=== PATIENT | male | born 1940 | race Caucasian/White ===

== ENCOUNTER → 2016-12-22 | Outpatient (CLI) | payer OTHER ==
[~2016-12-22] MED LIST: ADVAIR 250/501 EA INH; ALBUTEROL2.5 MG/0.5 INH; ALPRAZOLAM0.5 M3 PO; AUGMENTIN 875 M1 TAB PO; BAYER ASPIRIN C81 MG PO; CIPRO500 MG PO; CIPRODEX 0.3%-7.5 ML OT; DAYPRO600 M1 PO; DELTASONE10 MG PO; DONEPEZIL HCL10 MG PO; DONEPEZIL HYDRO10 MG PO; DOXYCYCLINE100 MG PO; Duoneb 3ML 3 MG/3 ML INH; KLOR-CON 1010 MEQ PO; LASIX40 MG PO; LISINOPRIL20 MG PO; MULTIPLE VITAMI1 TAB PO; NORCO 5-325 TA1 EACH PO; NORFLEX100 MG PO; PREDNISONE20 MG PO; PREDNISONE5 MG PO; RITE AID BRAND PO; ROBAXIN750 MG PO; SINGULAIR10 MG PO; SPIRIVA18 MCG PO; THEO-24 200MG200 MG PO; THEOPHYLLINE E100 M1 PO; THEOPHYLLINE E200 MG PO; THEOPHYLLINE200 M3 PO; VICODIN 5/500 505 MG PO; VICODIN 500 MG-1 TAB PO; VITAMIN D31000 IU PO; VITAMIN E WATE400 I2 PO; Ventolin 02.5 MG/3 M INH; Zestril,Prinivi40 MG PO
[2016-12-22 09:58] LABS: IRON 214 ug/dL (65-175); IRON SATURATION 92 %; UIBC 18 ug/dL (110-410)
== END | disposition home or self-care (01) ==
LOC: LAB 08:48
PROVIDERS: Internal Medicine Hematology & Oncology
DX: E11.9 Type 2 diabetes mellitus without complications (principal); D75.1 Secondary polycythemia

== ENCOUNTER 2016-12-31 18:05 | Inpatient (IN) | payer OTHER ==
[~2016-12-31] VITALS: Ht 170.1 cm; Wt 75.5 kg
--- NOTE | ~2016-12-31 | PR ---
[place], [place] PROGRESS NOTE NAME: KEITH SANTOS [facility] #: [id number] UNIT #: [id number] ROOM: 405 DOCTOR: ANNEMARIE SMALLS MD BIRTHDATE: [birth year] DOS: 01/04/2017 SUBJECTIVE: The patient is doing fine without any complaints this morning. OBJECTIVE: VITAL SIGNS: Graphic trend shows a pressure of 109/67, pulse of 57, respirations 18, temperature 97.3. LUNGS: Diminished breath sounds. HEART: Regular. ABDOMEN: Obese, soft, nontender. EXTREMITIES: Without any edema. ASSESSMENT AND PLAN: 1. Chest pain, precordial ruled out for myocardial infarction, negative stress test. Plan is to discharge him to home. 2. 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 ANNEMARIE SMALLS MD CM:PNTRANS 0834 ANNEMARIE SMALLS MD 01/04/17 2210 interface
--- NOTE | ~2016-12-31 | PR ---
[place], [place] PROGRESS NOTE NAME: KEITH SANTOS [facility] #: [id number] UNIT #: [id number] ROOM: 405 DOCTOR: ANNEMARIE SMALLS MD BIRTHDATE: [birth year] DOS: SUBJECTIVE: The patient states that he feels good and is not having any complaints. Consulted [place] on the patient. Dr. Betancourt did add the medications. OBJECTIVE: GENERAL: Today, he is awake, and alert and oriented, in no major distress. VITAL SIGNS: Blood pressure is 120/62; pulse is 66, respirations 20, temperature 97.7. LUNGS: Diminished breath sounds. HEART: Regular. ABDOMEN: Obese, soft. EXTREMITIES: Without any edema. ASSESSMENT AND PLAN: 1. Precordial chest pain, ruled out for myocardial infarction, scheduled for a stress test. He is on nitrates and a small dose of beta blockers. 2. Large aneurysm, thoracic, already followed up with Vascular Surgery every 6 months. 3. End-stage chronic obstructive pulmonary disease with chronic respiratory failure, on oxygen supplementation. The plan is to discharge him tomorrow after the stress test is done. ANNEMARIE SMALLS MD CM:PNTRANS 1002 06 ANNEMARIE SMALLS MD 01/02/17 180 interface
--- NOTE | ~2016-12-31 | ST ---
[place], [place] EXERCISE STRESS TEST REPORT NAME: KEITH SANTOS [facility] #: [id number] UNIT #: [id number] ROOM: 405 DOCTOR: ANNEMARIE SMALLS MD BIRTHDATE: [birth year] DOS: 01/03/2017 REASON FOR TESTING: Evaluation of precordial chest pain. DESCRIPTION: After explaining the procedure and obtaining consent, the patient was subjected to Lexiscan infusion 0.4 mg. His resting heart rate was 60 with a blood pressure 118/80. EKG showed right bundle branch block, nonspecific STs. After explaining the procedure and obtaining consent, 0.4 mg of Lexiscan infusion was given. No arrhythmias were noted during the stress test. The patient did not have any complaints. After the Lexiscan infusion was over, he was injected with Cardiolite and stress images were taken. ASSESSMENT AND PLAN: Lexiscan stress test without any ST-T wave changes or arrhythmias. Cardiolite images are pending. ANNEMARIE SMALLS MD CM:STRESS:EXERCISE STRESS TEST REPORT [id number] ANNEMARIE SMALLS MD
--- NOTE | ~2016-12-31 | WRIGHTHP ---
[place], [place] PATIENT HISTORY AND PHYSICAL EXAM NAME: KEITH SANTOS [facility] #: [id number] UNIT #: [id number] ROOM: 405 DOCTOR: ANNEMARIE SMALLS MD BIRTHDATE: [birth year] DOS: 01/01/2017 HISTORY OF PRESENT ILLNESS: The patient is 76 years old. The patient is very well known to us, comes in with complaints of chest pain. The patient has cognitive decline. He is not able to help us with a whole lot of history. States he was sitting at his dining room table, eating his dinner when he developed some chest pain. He did have some shortness of breath also and so he decided to come in to the Emergency Room. In the ER, he was evaluated, had a CT of the chest shows aneurysms, which are old and stable, but was admitted because of slight elevation in the MB. The patient denies having any chest pains, right now does not have any shortness of breath, any fever or chills. PAST MEDICAL HISTORY: Significant for 1. COPD, centrilobar emphysema. 2. Alzheimer, late onset. 3. Benign hypertension with LVH. 4. Chronic respiratory failure, oxygen dependent. 5. History of thoracic aortic aneurysms followed by Dr. Beck in [place]. MEDICATIONS: That he is on are Xanax 0.5 mg daily p.r.n., DuoNebs q.i.d., aspirin 81, vitamin D 1000 units, donepezil 10, Lasix 40, lisinopril 20, Singulair 10, multivitamin 1 tablet daily. SOCIAL HISTORY: Nonsmoker, does not use any alcohol, lives at home with his . PHYSICAL EXAMINATION: GENERAL: The patient is awake and alert, fairly oriented to person and place. VITAL SIGNS: Graphic trend shows a pressure of 132/70, pulse of 76, respirations 14, afebrile. HEAD AND NECK: Examination within normal limits. LUNGS: Diminished breath sounds. HEART: Regular. ABDOMEN: Soft, nontender. EXTREMITIES: Without any edema. ASSESSMENT AND PLAN: 1. The patient with precordial chest pain, rule out myocardial infarction protocol with serial troponins were done, which have come back negative. The patient has ruled out. Can discontinue the Lovenox and nitrates. We will schedule him for an echocardiogram and a stress test. 2. Centrilobar emphysema. The patient is with chronic respiratory failure. The patient does not have any evidence of exacerbations. [place], [place] PATIENT HISTORY AND PHYSICAL EXAM NAME: KEITH SANTOS UNIT #: [id number] ROOM: 405 DOCTOR: ANNEMARIE SMALLS MD BIRTHDATE: [birth year] ANNEMARIE SMALLS MD CM:HISPHYS:PATIENT HISTORY AND PHYSICAL EXAMINATION 5 4 ANNEMARIE SMALLS MD 01/01/17834 interface
--- NOTE | ~2016-12-31 | DS ---
[place], [place] DISCHARGE SUMMARY NAME: KEITH SANTOS [facility] #: [id number] UNIT #: [id number] ROOM: 405 DOCTOR: ANNEMARIE SMALLS MD BIRTHDATE: [birth year] DOS: 01/04/2017 HOSPITAL COURSE: The patient is 76 years old, comes in with complaints of chest pain, precordial in nature without any radiation. Please see H and P for details. There is a large aneurysm, which did not show any decompensation. After admission, a rule out myocardial infarction protocol was done, which was negative. Cardiology consultation was obtained and some medications were added. The patient did become hypotensive and bradycardic. So meds had to be discontinued. A stress test was performed and the patient did not show any pathology. So the plan will therefore be discharged her to home to be followed up as an outpatient. DISCHARGE MEDICATIONS: The prescriptions are the same as in admission, the only new prescription given was metoprolol 25 mg daily. ANNEMARIE SMALLS MD CM:DISCHARG 0836 ANNEMARIE SMALLS MD 01/04/17 0854 interface
--- NOTE | ~2016-12-31 | PR ---
[place], [place] PROGRESS NOTE NAME: KEITH SANTOS [facility] #: [id number] UNIT #: [id number] ROOM: 405 DOCTOR: ANNEMARIE SMALLS MD BIRTHDATE: [birth year] DOS: 01/03/2017 SUBJECTIVE: The patient is doing fine without any complaints. OBJECTIVE: VITAL SIGNS: Graphic trend shows a pressure of 110/69, pulse of 54, respirations 20, temperature 97.5. LUNGS: Diminished breath sounds. HEART: Regular. ABDOMEN: Obese, soft, nontender. EXTREMITIES: Without any edema. ASSESSMENT AND PLAN: 1. Precordial chest pain, ruled out. The patient is scheduled for a stress today. 2. Chronic obstructive pulmonary disease, centrilobular emphysema with chronic respiratory failure, oxygen dependent, breathing treatments are being given, one dose of steroids to be given today because of some increased shortness of breath. 3. Benign hypertension, controlled, but the patient is bradycardic from the metoprolol also makes the shortness of breath get worse and the patient with end-stage chronic obstructive pulmonary disease. We will start decreasing the dose of the metoprolol. ANNEMARIE SMALLS MD CM:PNTRANS 0848 ANNEMARIE SMALLS MD 01/04/17 0055 interface
--- NOTE | ~2016-12-31 | PR ---
[place], [place] PROGRESS NOTE NAME: KEITH SANTOS [facility] #: [id number] UNIT #: [id number] ROOM: 405 DOCTOR: DAVID LOWE MD BIRTHDATE: [birth year] DOS: 01/04/2017 SUBJECTIVE: A 76-year-old with thoracic and abdominal aortic aneurysm, but it is now only 4.2 cm, hemodynamically appears to be stable. OBJECTIVE: VITAL SIGNS: Blood pressure today is 109/67, heart rate is 57. HEENT: Unremarkable. NECK: Supple, no JVD. LUNGS: Diminished breath sounds. HEART: Sounds are regular. ABDOMEN: Soft. NEUROLOGIC: Stable. LABORATORY DATA: H and H is normal. Creatinine is 0.81. The patient underwent a stress test. No evidence of reversible ischemia. Continue the beta blockers as ordered and a baby aspirin also. ASSESSMENT AND PLAN: Continue the present care. The patient is already on isosorbide, Lopressor, and lisinopril. Monitor the blood pressure closely. We will consider to do annual CTA of the aorta. Monitor the lipid profile closely and we will follow up. DAVID LOWE MD CM:PNTRANS [id number] DAVID LOWE MD 01/04/17 1138 interface
--- NOTE | ~2016-12-31 | CON ---
[place], [place] REPORT OF CONSULTATION [facility] [id number] UNIT #: [id number] ROOM: 405 DOCTOR: CATRACHO WEST MD BIRTHDATE: [birth year] DOS: 01/03/2017 HISTORY OF PRESENT ILLNESS: This is a 76-year-old -Wel[place] man with impaired memory/significant dementia, essential hypertension, COPD and is oxygen dependent. He has significant COPD and also has ascending aortic and infrarenal aortic aneurysm diagnosed many years ago. The patient is unable to give me much history, although he is very alert. He remembered [place]" and so his memory is not all that impaired. He was eating at the dining table and had shortness of breath because he had some shortness of breath as well and the brought him to the Emergency Department he was admitted for further workup. He quit smoking long time ago. He worked in the [employer] and lives at home. HOME MEDICATIONS: Include DuoNeb, aspirin 81 daily, lisinopril 20 daily, Lasix 40 daily, Singulair 10, multivitamins, Xanax 0.5 mg p.r.n., and donepezil 10 mg daily. PHYSICAL EXAMINATION: GENERAL: This is a patient who is alert. He is very comfortable. There is no anemia or thyromegaly. VITAL SIGNS: Pulse is regular at this 54 beats per minute, blood pressure 110/69. NECK: Normal JVP, no bruit. HEART: There is no cardiomegaly. No murmurs are present. EXTREMITIES: There is no edema in the lower extremities. RESPIRATORY: He is not tachypneic, but has oxygen on. Percussion note is normal. Auscultation reveals a moderately diminished breath sounds in the lower zones with some adventitious sounds. Expiratory phase is not prolonged, and there are no expiratory wheezes. DIAGNOSTIC STUDIES: An ECG on admission showed normal sinus rhythm at 77 beats per minute, incomplete right bundle branch block and left anterior hemiblock. Troponin I levels have been normal. LABORATORY DATA: CT scan of the chest and abdomen demonstrated ascending aorta of 42 mm in size and infrarenal aorta at 42 mm as well indicating mild aneurysms. He had an echocardiogram in August of last year, which was read as showing an EF of 60%. IMPRESSION: This patient with significant dementia and has an abnormal ECG, i.e., right bundle branch block and left anterior hemiblock. He has ruled out for acute myocardial infarction. He had already done a Lexiscan Cardiolite study this morning. Dr. Betancourt will take a look at it. I doubt if significant abnormality will be identified and further recommendations will be provided by Dr. Betancourt after reviewing nuclear images. [place], [place] REPORT OF CONSULTATION NAME: KEITH SANTOS UNIT #: [id number] ROOM: 405 DOCTOR: CATRACHO WEST MD BIRTHDATE: [birth year] Thank you on behalf of Dr. Betancourt for this consult. CATRACHO WEST MD CM:CONSTR:REPORT OF CONSULTATION 1221 01/04/17 0329 interface
[2016-12-31 18:21] VITALS: BP 140/90
[2016-12-31 18:47] VITALS: BP 136/82
[2016-12-31 19:03] LABS: ALBUMIN 3.2 gm/dl (3.1-4.5); ALKALINE PHOSPHATASE 57 U/L (45-117); BILIRUBIN, TOTAL 0.5 mg/dl (0.2-1.0); BUN 26 mg/dl (7-24); CARBON DIOXIDE 34 mmol/L (21-32); CHLORIDE 102 mmol/L (98-107); CPK 110 U/L (39-308); EST GLOM FILT AFRICAN AMERICAN > 60 ml/min; GLUCOSE 96 mg/dL (65-99); MAGNESIUM 2.1 mg/dL (1.5-2.1); POTASSIUM 4.4 mmol/L (3.5-5.1); SGOT/AST 28 IU/L (3-35); SGPT/ALT 24 U/L (12-78); SODIUM 141 mmol/L (136-145); TOTAL PROTEIN 6.3 gm/dL (6.4-8.2)
[2016-12-31 19:04] LABS: BASO % 0.5 % (0.0-1.0); EOS # 0.1 10*3/uL (0.0-0.4); EOS % 1.4 % (1.0-4.0); HEMATOCRIT 48.8 % (42.0-52.0); HEMOGLOBIN 16.9 g/dl (14.0-18.0); LYMPH # 1.4 10*3/uL (1.3-4.4); LYMPH % 18.2 % (27.0-41.0); MEAN CELL VOLUME 97.4 fl (80.0-94.0); MEAN CORPUSCULAR HGB 33.7 pg (27.0-31.0); MEAN CORPUSCULAR HGB CONC 34.6 g/dl (33.0-37.0); MEAN PLATELET VOLUME 9.7 fl (9.6-12.3); MONO # 0.7 10*3/uL (0.1-1.0); MONO % 8.8 % (3.0-9.0); NEUT # 5.2 10*3/uL (2.3-7.9); NEUT % 70.6 % (47.0-73.0); PLATELET COUNT AUTOMATED 161 10*3/uL (130-400); RED BLOOD COUNT 5.01 10*6/uL (4.50-5.90); RED CELL DISTRI WIDTH 13.6 % (0-14.5); WHITE BLOOD COUNT 7.4 10*3/uL (4.8-10.8)
[2016-12-31 19:15] LABS: C-REACTIVE PROTEIN < 0.29 MG/DL (0-0.3)
[2016-12-31 19:17] LABS: PROTHROMBIN TIME 10.3 SECONDS (9.0-12.4)
[2016-12-31 19:18] VITALS: BP 122/78
[2016-12-31 20:44] VITALS: BP 153/97
[2016-12-31 21:02] VITALS: BP 142/80
[2016-12-31 22:30] VITALS: BP 165/92
[2017-01-01] VITALS: BP 159/87
[2017-01-01 03:56] VITALS: BP 142/74
[2017-01-01 08:00] VITALS: BP 141/89
[2017-01-01 12:00] VITALS: BP 111/78
[2017-01-01 16:00] VITALS: BP 103/71
[2017-01-01 20:00] VITALS: BP 115/68
[2017-01-02] VITALS: BP 110/69
[2017-01-02 08:00] VITALS: BP 120/62
[2017-01-02 12:00] VITALS: BP 100/57
[2017-01-02 16:00] VITALS: BP 84/49
[2017-01-02 17:00] VITALS: BP 118/66
[2017-01-02 20:00] VITALS: BP 124/76
[2017-01-03] VITALS: BP 110/69
[2017-01-03 06:57] LABS: BASO % 0.8 % (0.0-1.0); EOS # 0.3 10*3/uL (0.0-0.4); EOS % 6.1 % (1.0-4.0); HEMATOCRIT 49.4 % (42.0-52.0); HEMOGLOBIN 16.7 g/dl (14.0-18.0); LYMPH # 0.7 10*3/uL (1.3-4.4); LYMPH % 13.5 % (27.0-41.0); MEAN CELL VOLUME 98.2 fl (80.0-94.0); MEAN CORPUSCULAR HGB 33.2 pg (27.0-31.0); MEAN CORPUSCULAR HGB CONC 33.8 g/dl (33.0-37.0); MEAN PLATELET VOLUME 9.3 fl (9.6-12.3); MONO # 0.5 10*3/uL (0.1-1.0); MONO % 9.3 % (3.0-9.0); NEUT # 3.7 10*3/uL (2.3-7.9); NEUT % 69.5 % (47.0-73.0); PLATELET COUNT AUTOMATED 139 10*3/uL (130-400); RED BLOOD COUNT 5.03 10*6/uL (4.50-5.90); RED CELL DISTRI WIDTH 13.2 % (0-14.5); WHITE BLOOD COUNT 5.3 10*3/uL (4.8-10.8)
[2017-01-03 07:34] LABS: EST GLOM FILT AFRICAN AMERICAN > 60 ml/min
[2017-01-03 12:00] VITALS: BP 126/73
[2017-01-03 16:00] VITALS: BP 78/50
[2017-01-03 20:00] VITALS: BP 84/56
[2017-01-04] VITALS: BP 109/67
[2017-01-04 07:17] LABS: MEAN CORPUSCULAR HGB 33.4 pg (27.0-31.0); MEAN CORPUSCULAR HGB CONC 34.1 g/dl (33.0-37.0); MEAN PLATELET VOLUME 9.4 fl (9.6-12.3); PLATELET COUNT AUTOMATED 141 10*3/uL (130-400); RED BLOOD COUNT 4.49 10*6/uL (4.50-5.90); RED CELL DISTRI WIDTH 12.9 % (0-14.5); WHITE BLOOD COUNT 8.3 10*3/uL (4.8-10.8)
[2017-01-04 07:44] LABS: BUN 24 mg/dl (7-24); CARBON DIOXIDE 38 mmol/L (21-32); CHLORIDE 103 mmol/L (98-107); EST GLOM FILT AFRICAN AMERICAN > 60 ml/min; GLUCOSE 99 mg/dL (65-99); POTASSIUM 3.9 mmol/L (3.5-5.1); SODIUM 142 mmol/L (136-145)
[2017-01-04 07:45] LABS: BASOPHIL # 0.1 10*3/uL (0-0.1); BASOPHILS 1 % (0-1); LYMPHOCYTE # 0.6 10*3/uL (1.3-4.4); METAMYELOCYTES 1 % (0-0); MONOCYTE # 0.7 10*3/uL (0.1-1.0); NEUTROPHIL # 6.9 10*3/uL (2.3-7.9); NEUTROPHILS 83 % (47-73); PLATELET SUFFICIENCY NORMAL (NORMAL); TOTAL CELLS COUNTED 100 #CELLS
[2017-01-04 08:00] VITALS: BP 141/65
[2017-01-04] MEDS ORDERED: LOPRESSOR25 MG PO (08:35)
== END 2017-01-04 11:10 | disposition home or self-care (01) | DRG 313 ==
LOC: ED 18:05 → EDHOLD 21:56 → 4E 21:56
PROVIDERS: Emergency Medicine; Internal Medicine
DX: R07.89 Other chest pain (principal); I95.9 Hypotension, unspecified; J96.10 Chronic respiratory failure, unspecified whether with hypoxia or hypercapnia; I71.2 Thoracic aortic aneurysm, without rupture; Z99.81 Dependence on supplemental oxygen; R00.1 Bradycardia, unspecified; J43.2 Centrilobular emphysema; I45.10 Unspecified right bundle-branch block; G30.1 Alzheimer's disease with late onset; I10 Essential (primary) hypertension; F02.80 Dementia in other diseases classified elsewhere, unspecified severity, without behavioral disturbance, psychotic disturbance, mood disturbance, and anxiety; I71.4 Abdominal aortic aneurysm, without rupture; T44.7X5A Adverse effect of beta-adrenoreceptor antagonists, initial encounter; Z82.49 Family history of ischemic heart disease and other diseases of the circulatory system; Z87.891 Personal history of nicotine dependence; Z79.82 Long term (current) use of aspirin; Z79.899 Other long term (current) drug therapy

== ENCOUNTER 2017-04-13 11:12 | Emergency (ER) | payer OTHER ==
[~2017-04-13] VITALS: Wt 77.1 kg
[~2017-04-13 11:12] MED LIST changes: +LOPRESSOR25 MG PO
[2017-04-13 11:38] VITALS: BP 154/93
[2017-04-13] MEDS ORDERED: IBU800 MG PO (14:08)
== END 2017-04-13 16:10 | disposition home or self-care (01) ==
LOC: ED 11:12
DX: S60.011A Contusion of right thumb without damage to nail, initial encounter (principal); J44.9 Chronic obstructive pulmonary disease, unspecified; Z79.82 Long term (current) use of aspirin; Z79.899 Other long term (current) drug therapy; W01.0XXA Fall on same level from slipping, tripping and stumbling without subsequent striking against object, initial encounter; Y93.89 Activity, other specified; Y92.89 Other specified places as the place of occurrence of the external cause; Y99.8 Other external cause status

== ENCOUNTER 2017-06-23 11:53 | Inpatient (IN) | payer OTHER ==
[~2017-06-23] VITALS: Ht 162.5 cm; Wt 80.4 kg
--- NOTE | ~2017-06-23 | PR ---
[place], [place] PROGRESS NOTE NAME: KEITH SANTOS [facility] #: [id number] UNIT #: [id number] ROOM: 508 DOCTOR: ANNEMARIE SMALLS MD BIRTHDATE: [birth year] DOS: 06/26/2017 SUBJECTIVE: The patient has no new complaints. He feels good. He has lost significant amount of weight as per the patient. OBJECTIVE: VITAL SIGNS: Graphic trend shows blood pressure 139/91, pulse of 59, respirations 20, temperature 97.6. LUNGS: Diminished breath sounds, clear this morning. HEART: Regular. ABDOMEN: Obese, soft. EXTREMITIES: Without any edema. ASSESSMENT AND PLAN: 1. Acute diastolic congestive heart failure, clinically improved. 2. Acute exacerbation of chronic obstructive pulmonary disease with acute respiratory distress syndrome, stable. Plan is to discharge him to home today. Follow up as an outpatient. ANNEMARIE SMALLS MD CM:PNTRANS 0829 0001 ANNEMARIE SMALLS MD 06/27/17 0000 interface
--- NOTE | ~2017-06-23 | PR ---
[place], [place] PROGRESS NOTE NAME: KEITH SANTOS [facility] #: [id number] UNIT #: [id number] ROOM: 508 DOCTOR: ANNEMARIE SMALLS MD BIRTHDATE: [birth year] DOS: SUBJECTIVE: The patient is feeling much better, does not have any new complaints. OBJECTIVE: VITAL SIGNS: Graphic trend shows a pressure 151/62, pulse of 64, respirations 20, temperature 97.8. LUNGS: Diminished breath sounds. HEART: Regular. ABDOMEN: Obese. EXTREMITIES: Decreased edema and left leg less swollen also today. There is still minimal swelling around the left knee joint. X-ray of the knee showed joint space narrowing, but no acute injury. Lateral soft tissue swelling was noted. This is most likely from the fall that the patient sustained recently. ASSESSMENT AND PLAN: 1. Acute diastolic congestive heart failure, patient is on IV diuretics and improving. 2. Acute exacerbation of chronic obstructive pulmonary disease, stable on the current steroid dosage. Echocardiogram ordered and is pending. 3. Recent fall with left knee injury. X-ray showing soft tissue swelling, apply ice to the area, PT consult will also be obtained. ANNEMARIE SMALLS MD CM:PNTRANS 0834 1252 ANNEMARIE SMALLS MD 06/25/17 1251 interface
--- NOTE | ~2017-06-23 | WRIGHTHP ---
[place], [place] PATIENT HISTORY AND PHYSICAL EXAM NAME: KEITH SANTOS [facility] #: [id number] UNIT #: [id number] ROOM: 508 DOCTOR: ANNEMARIE SMALLS MD BIRTHDATE: [birth year] DOS: 06/23/2017 HISTORY OF PRESENT ILLNESS: This patient is 77 years old. The patient is very well known to us, comes in with complaints of difficulty breathing. The patient states that he fell out of bed 2 days ago and hit his left knee and since then he has had some discomfort in the knee and some swelling in his leg. He does not have any fever, chills, cough. He denies having any bowel or bladder complaints. PAST MEDICAL HISTORY: Significant for: 1. Last hospitalization in December 2016 with chest pain, underwent a stress test, which was negative. 2. Panacinar emphysema. 3. Chronic respiratory failure. 4. Thoracic aortic aneurysm. 5. Polycythemia secondary. 6. Benign hypertension. 7. Alzheimer dementia, late onset. MEDICATIONS: He is on currently are vitamin D 1000 units, aspirin 81 mg daily, donepezil 10 daily, Lasix 40 daily, lisinopril 20 daily, metoprolol 25 b.i.d., Singulair 10 daily, multivitamin 1 tablet daily, prednisone 5 daily, Exelon 1.5 mg patch daily. SOCIAL HISTORY: Nonsmoker, does not use any alcohol. PHYSICAL EXAMINATION: GENERAL: The patient is awake and alert and oriented. VITAL SIGNS: Blood pressure is 142/70, pulse of 76, respirations 14, afebrile. LUNGS: Diminished breath sounds, clear. HEART: Regular. ABDOMEN: Obese, soft, nontender. EXTREMITIES: Quite a lot of swelling noticed in the left lower leg with some swelling of the left knee and bruising along the left anterior tibial area. LABORATORY DATA: Shows a WBC count 7.7, hemoglobin 17.6, hematocrit 53.4, platelets 146. Comprehensive: Glucose 104, BUN 16, creatinine 0.93, sodium 144, potassium 4.1, chloride 103, bicarbonate 38, calcium 8.3, magnesium 2.2. Chest x-ray: Cardiomegaly. ASSESSMENT AND PLAN: 1. Acute diastolic congestive heart failure, placed on IV diuretics. Repeat labs to be ordered for tomorrow. 2. Acute exacerbation of chronic obstructive pulmonary disease. The patient has been placed on IV steroids and antibiotics. Continue breathing treatments. 3. Benign hypertension, controlled. 4. Left knee swelling following a fall. X-ray of the knee will be ordered. 5. Left leg swelling, unilateral leg edema. We will have to rule out deep venous thrombosis. Venous Doppler is ordered. [place], [place] PATIENT HISTORY AND PHYSICAL EXAM NAME: KEITH SANTOS UNIT #: [id number] ROOM: 508 DOCTOR: ANNEMARIE SMALLS MD BIRTHDATE: [birth year] ANNEMARIE SMALLS MD CM:HISPHYS:PATIENT HISTORY AND PHYSICAL EXAMINATION 1324 160 ANNEMARIE SMALLS MD 06/24/17 1609 interface
--- NOTE | ~2017-06-23 | DS ---
[place], [place] DISCHARGE SUMMARY NAME: KEITH SANTOS [facility] #: [id number] UNIT #: [id number] ROOM: 508 DOCTOR: ANNEMARIE SMALLS MD BIRTHDATE: [birth year] DOS: 06/26/2017 DIAGNOSES: 1. Acute diastolic congestive heart failure, resolved. 2. Acute exacerbation of chronic obstructive pulmonary disease, stable and improved. 3. Chronic respiratory failure, oxygen dependent. 4. Benign hypertension. 5. Recent fall with left knee pain with soft tissue swelling. 6. Acute hypoxic respiratory failure. HOSPITAL COURSE: This patient is very well known to us, comes in with complaints of difficulty breathing. The patient was hypoxic when he arrived at the emergency room, saturations in the low 80s. The patient continued on the oxygen supplementation, Lasix was given when the patient was placed on the fifth floor. He did not have any complaints. He apparently had a fall before he came in and complained of knee pain. Left leg was also more swollen than the right. Venous Doppler was done to rule out DVT. DVT was ruled out on the left leg and the left knee x-ray showed soft tissue swelling with a small area of redness and swelling of the prepatellar area on the left knee. The patient is able to ambulate using a walker. This has not changed. The patient is stable. Clinically, the patient has improved since admission, so the plan is to discharge him to home to be followed up as an outpatient. DISCHARGE MEDICATIONS: Tapering dose of prednisone down to 5 mg daily, Ceftin 250 twice daily for 5 days, Singulair 10 daily, aspirin 81 daily, lisinopril 1 tablet 20 mg daily, multivitamin 1 tablet daily, Lasix 40 daily, vitamin E 400 units daily, vitamin D 1000 units daily, metoprolol 25 daily, Exelon 13.3 mg daily, prednisone 5 daily, citalopram 10 daily. ANNEMARIE SMALLS MD CM:DOUG 0835 1625 ANNEMARIE SMALLS MD 06/28/17 0625 interface
--- NOTE | ~2017-06-23 | CON ---
[place], [place] REPORT OF CONSULTATION NAME: KEITH SANTOS [facility] #: [id number] UNIT #: [id number] ROOM: 508 DOCTOR: THERESA BAXTER MD BIRTHDATE: [birth year] DOS: 06/28/2017 CONSULTATION REQUESTED BY: Dr. Julien. REASON FOR CONSULTATION: Symptoms of shortness of breath. HISTORY OF PRESENT ILLNESS: This is a 77-year-old white male who has been known to me from outpatient. He has been admitted under care of Dr. Julien on 06/23/2017. The patient reported symptoms of having increased shortness of breath occurring at home, which has been noted progressively worse. The patient also fell down from the bed 3 days ago prior to the admission, noted with some injury soft tissue to the left knee. He has been treated in the hospital with diuretics and bronchodilators. The patient was also receiving corticosteroids as well. He was still noted symptoms of significant shortness of breath. He has been started on the BiPAP at this time resulting in partial improvement in symptoms. The patient was assessed this morning. The patient does have mild cough without any sputum expectoration. Denies symptoms of wheezing or chest pain. Denies symptoms of hemoptysis. REVIEW OF SYSTEMS: CONSTITUTIONAL: Fatigue and tiredness noted for this patient without symptoms of fever or chills. EYES: Denies any burning, redness, or tenderness. EARS, NOSE, THROAT SYMPTOMS: No sore throat, hoarseness, otalgia, postnasal drainage. CARDIOVASCULAR: Denies anginal pain noted with some edema of the extremities intermittently. Denies symptoms of palpitations. GASTROINTESTINAL SYMPTOMS: Denies dysphagia, nausea, vomiting, diarrhea, abdominal pain, hematemesis, melena, hematochezia. SKIN: Denies lesions or rashes. MUSCULOSKELETAL: The patient noted some pain and discomfort in the left knee, otherwise no acute joint pain. CENTRAL NERVOUS SYSTEM: Denies any dizziness, headache, diplopia or syncopal episodes. Remaining systems were reviewed and they were noted all negative. PAST MEDICAL HISTORY: 1. Longstanding chronic obstructive pulmonary disease. 2. Hypercholesterolemia. 3. Chronic moderate obesity. 4. Chronic hypoxic respiratory failure and hypercapnia. 5. History of uncomplicated moderate persistent bronchial asthma. 6. Obstructive sleep apnea disorder. 7. Past history of pulmonary nodule. 8. Ascending thoracic aortic aneurysm. SOCIAL HISTORY: The patient is and lives at home. He has seven children. Denies history of chronic alcohol use or illicit drug use. The patient has worked in the [employer] for 26 years, [employer] and [employer] for 15 years [place], [place] REPORT OF CONSULTATION NAME: KEITH SANTOS UNIT #: [id number] ROOM: 508 DOCTOR: THERESA BAXTER MD BIRTHDATE: [birth year] prior to [facility]. Tobacco use noted with use of tobacco products from the age of [age] years old, 2 pack of cigarettes per day until year 1999. PAST SURGICAL HISTORY: Noted: 1. Inguinal hernia repair bilaterally. 2. Abdominal aortic aneurysm repair in 2009. FAMILY HISTORY: The patient's father at an age of 6262 years old from unknown medical illnesses. Mother at age 5959 years old from complications of liver failure. MEDICATIONS: Current administered medication noted use of ____, prednisone, metoprolol tartrate, lisinopril, Lasix, citalopram, aspirin, and DuoNeb. The patient also getting prednisone 5 mg daily. DRUG ALLERGIES: No known drug allergies. PHYSICAL EXAMINATION: GENERAL: A 77-year-old white male currently noted to be awake and alert without any distress. Height of 5 feet 4 inches, weight of 177 pounds, BMI 30.9. VITAL SIGNS: The patient shows a normal temperature, respiratory rate is between 33-16, heart rate of 61-63, blood pressure 134/86-122/58. Pulse oxygen saturation of the patient noted on the BiPAP, 92% saturation on 35% oxygen, setting of 15/7. HEENT: Showed moderate obesity. Head was atraumatic. Edentulous status. NECK: Supple. CARDIOVASCULAR: S1, S2 audible. LUNGS: Shows generalized reduction of breath sounds with expiratory wheezing. There were no crackles. ABDOMEN: Soft, nontender, bowel sounds present. CENTRAL NERVOUS SYSTEM: The patient's cranial nerves 2-12 intact. No focal deficit. MUSCULOSKELETAL: No deformities. SKIN: Showed no lesions or rashes. MUSCULOSKELETAL: Does not show any acute deformities. LABORATORY DATA: CBC on 06/23/2017 on admission was noted as hematocrit of 53.4, hemoglobin 17.6, WBC count normal, platelet count normal. PT/PTT on 06/23/2017 was normal. CMP of the patient 06/23/2017 normal, glucose, BUN and creatinine, CO2 of 38. Arterial blood gas of the patient, pH of 7.36, pCO2 of 62.5 and pO2 89 on 40% oxygen 12 liters oxygen supplementation. Ultrasound of the lower extremity left side was noted. There was no evidence of deep venous thrombosis, left lower extremity. CBC of this morning, WBC count 17.8, hemoglobin 18.5, hematocrit 54.8, platelet count of 174,000. PT/PTT, which was done this morning was noted as normal. CMP of the patient this morning, glucose 108, BUN 37, creatinine was normal. CO2 of 36. Arterial blood gas for this patient that were done yesterday, pH of 7.41, pCO2 of 58, pO2 61.8 on 35% oxygen supplementation. BMP of the patient that was done this morning, BUN 36, creatinine normal, glucose normal, CO2 of 39. CBC for this morning, WBC count 16.7, hematocrit 50.8, WBC count 11,000 with platelet count mildly decreased [place], [place] REPORT OF CONSULTATION NAME: KETIH SANTOS UNIT #: [id number] ROOM: 508 DOCTOR: THERESA BAXTER MD BIRTHDATE: [birth year] 129,000. Review of the radiology data for this patient. The chest x-ray that was done for this patient was noted with area of infiltration was noted with the possibility of acute pneumonia cannot be excluded in the left lower lobe versus area of atelectasis. Pleural thickening noted on the right side. The chest x-ray that was done for the patient on admission one-view on 06/23/2017 was noted with, the finding appeared to be new for this patient as compared with the chest x-ray that was done on 06/23/2017. IMPRESSION: 1. The patient who has been currently admitted to the hospital noted with acute hypoxic respiratory failure, chronic hypercapnia for this patient with chronic hypoxic respiratory failure as well. He has developed area of atelectasis in left lower lobe versus area of pneumonia cannot be completely excluded, the atelectasis more likely than the pneumonia. 2. The patient with a history of obstructive sleep apnea disorder as well. 3. Other medical problems which are noted in the past history already reported. PLAN OF MANAGEMENT: CT scan of the chest will be done without contrast for further clear assessment. Consider bronchoscopy of the area of atelectasis will be noted for this patient. Also discontinuation of the prednisone. Start the patient on IV Solu-Medrol because of continued acute exacerbation of chronic obstructive pulmonary disease as well. Continue bronchodilators every 4 hours. Antibiotic for the patient will be started as doxycycline 100 mg p.o. b.i.d. as well. Sputum for Gram stain culture will be ordered as well as the patient is able to expectorate any sputum. Continue the BiPAP as previously ongoing for this patient as well. Additional treatment changes need to be made based on the progression of the illness. Usual care. All other treatment plan of management and therapies. Further treatment changes need to be made in this patient based on progression of the illness. Thank you for allowing me to participate in the care of this patient. THERESA PENA MD CM:CONSTR:REPORT OF CONSULTATION 1122 06/29/17 1333 interface
[~2017-06-23 11:53] MED LIST changes: +IBU800 MG PO
[2017-06-23 12:00] VITALS: BP 151/93
[2017-06-23 12:31] LABS: BASO % 0.5 % (0.0-1.0); EOS # 0.1 10*3/uL (0.0-0.4); HEMATOCRIT 53.4 % (42.0-52.0); HEMOGLOBIN 17.6 g/dl (14.0-18.0); LYMPH # 0.4 10*3/uL (1.3-4.4); LYMPH % 4.7 % (27.0-41.0); MEAN CELL VOLUME 103.5 fl (80.0-94.0); MEAN CORPUSCULAR HGB 34.1 pg (27.0-31.0); MEAN PLATELET VOLUME 9.2 fl (9.6-12.3); MONO # 0.4 10*3/uL (0.1-1.0); MONO % 4.9 % (3.0-9.0); NEUT # 6.8 10*3/uL (2.3-7.9); NEUT % 88.3 % (47.0-73.0); PLATELET COUNT AUTOMATED 146 10*3/uL (130-400); RED BLOOD COUNT 5.16 10*6/uL (4.50-5.90); RED CELL DISTRI WIDTH 13.3 % (0-14.5); WHITE BLOOD COUNT 7.7 10*3/uL (4.8-10.8)
[2017-06-23 12:39] LABS: ACT PARTIAL THROMBO TIME 26.2 SECONDS (20.8-31.5)
[2017-06-23 12:48] LABS: ALBUMIN 3.3 gm/dl (3.1-4.5); ALKALINE PHOSPHATASE 61 U/L (45-117); BUN 16 mg/dl (7-24); CHLORIDE 103 mmol/L (98-107); CREATININE 0.93 mg/dL (0.70-1.30); MAGNESIUM 2.2 mg/dL (1.5-2.1); POTASSIUM 4.1 mmol/L (3.5-5.1); SGOT/AST 26 IU/L (3-35); SGPT/ALT 26 U/L (12-78); SODIUM 144 mmol/L (136-145); TOTAL PROTEIN 6.5 gm/dL (6.4-8.2)
[2017-06-23 12:56] LABS: ABG BASE EXCESS 7.3 mmol/L (-2.0-2.0); ABG HCO3 35.3 mmol/l (22-26); ARTERIAL BLOOD GAS PCO2 62.5 mmHg (35-45); ARTERIAL BLOOD GAS PH 7.369 (7.35-7.45); ARTERIAL BLOOD GAS PO2 89.2 mmHg (80-90)
[2017-06-23 15:16] VITALS: BP 156/90
[2017-06-23 16:00] VITALS: BP 164/84
[2017-06-23 16:50] VITALS: BP 162/98
[2017-06-23] MEDS ORDERED: EXEL13.31 TD (17:59)
[2017-06-23] MEDS ORDERED: PREDNISONE5 MG PO (17:59)
[2017-06-23] MEDS ORDERED: CITALOPRAM10 MG PO (18:00)
[2017-06-23 20:00] VITALS: BP 150/87
[2017-06-24] VITALS: BP 152/78
[2017-06-24 08:00] VITALS: BP 142/80
[2017-06-24 12:00] VITALS: BP 139/82
[2017-06-24 16:00] VITALS: BP 120/72
[2017-06-24 20:00] VITALS: BP 152/54
[2017-06-25] VITALS: BP 151/82
[2017-06-25 07:08] LABS: BUN 21 mg/dl (7-24); CHLORIDE 96 mmol/L (98-107); CREATININE 0.78 mg/dL (0.70-1.30); SODIUM 141 mmol/L (136-145)
[2017-06-25 08:00] VITALS: BP 142/90
[2017-06-25 12:00] VITALS: BP 146/83
[2017-06-25 16:00] VITALS: BP 126/75
[2017-06-25 20:00] VITALS: BP 157/89
[2017-06-26] VITALS: BP 144/84
[2017-06-26 08:00] VITALS: BP 139/91
[2017-06-26] MEDS ORDERED: PREDNISONE5 MG PO (08:30)
[2017-06-26] MEDS ORDERED: CEFUROXIME AXE250 MG PO (08:30)
[2017-06-26] MEDS ORDERED: DUONEB 3 MG/3 ML3 M1 NEB (08:34)
[2017-06-27] MEDS ORDERED: SINGULAIR10 M1 PO (16:24)
[2017-06-27] MEDS ORDERED: XANAX0.5 MG PO (16:27)
[2017-06-27] MEDS ORDERED: ARICEPT5 M1 PO (16:30)
== END 2017-06-26 10:52 | disposition home or self-care (01) | DRG 190 ==
LOC: ED 11:53 → EDHOLD 15:03 → 5E 15:03
PROVIDERS: Nurse Practitioner Family; ADMIT Internal Medicine
DX: J44.1 Chronic obstructive pulmonary disease with (acute) exacerbation (principal); I50.31 Acute diastolic (congestive) heart failure; J80 Acute respiratory distress syndrome; Z99.81 Dependence on supplemental oxygen; I11.0 Hypertensive heart disease with heart failure; G30.1 Alzheimer's disease with late onset; F02.80 Dementia in other diseases classified elsewhere, unspecified severity, without behavioral disturbance, psychotic disturbance, mood disturbance, and anxiety; Z51.5 Encounter for palliative care; Z66 Do not resuscitate; M79.89 Other specified soft tissue disorders; Z79.899 Other long term (current) drug therapy; Z79.82 Long term (current) use of aspirin; Z87.01 Personal history of pneumonia (recurrent); Z82.49 Family history of ischemic heart disease and other diseases of the circulatory system

== ENCOUNTER 2017-06-27 13:11 | Inpatient (IN) | payer OTHER ==
[~2017-06-27] VITALS: Ht 162.5 cm; Wt 92.2 kg
[2017-06-27] VITALS (7 sets, daily range): BP systolic 111–154; BP diastolic 51–83
--- NOTE | ~2017-06-27 | PROC NOTE ---
[place], [place] PROCEDURE NOTE NAME: KEITH SANTOS [facility] #: [id number] UNIT #: [id number] ROOM: [facility] DOCTOR: JEAN LORA MD,THERESA BIRTHDATE: [birth year] DOS: 06/30/2017 PREOPERATIVE DIAGNOSIS: The patient with unexplained hemoptysis with left upper lung pulmonary nodule. POSTOPERATIVE DIAGNOSES: Superficial endobronchial bleeding was noted for this patient without any endobronchial lesion at the site of the left upper and the left lower lobe bronchial subsegments of the mucosa. PROCEDURE DESCRIPTION: Informed consent was obtained for the patient. The patient brought to the OR and placed in supine position. Conscious sedation administered by the Anesthesia Department. After achieving proper sedation, airway introduced in the mouth. Bronchoscope advanced into the airway into laryngeal area. Epiglottis and vocal cords were seen. The bronchoscope advanced to the vocal cord and tracheal lumen. The tracheal lumen was identified. Vocal cords were seen. They were yellowish in color moving symmetrically with the movements of the bronchoscope. The tracheal lumen was noted with a small amount of clotted blood, which was suctioned and mixed with mucus to the ernestina level. Ernestina was noted sharp. Right upper, right middle, right lower lobe bronchi were all noted patent with small amount of secretions suctioned with the help of normal saline wash. The left upper, lingular lower lobe bronchi were all examined. Superficial bleeding for the patient noted at the mucosa, which otherwise appeared to be normal at the junction of the left upper and left lower lobe bronchi. A 1:10,000 epinephrine was lavaged at that area resulting in complete resolution of bleeding at that time. Bronchial washing was taken. Procedure was tolerated by the patient without any complications. Postoperative findings were discussed with the patient's spouse in detail after the completion of the procedure. THERESA PENA MD CM:PROCNOTE:PROCEDURE NOTE [id number] THERESA LORA MD
--- NOTE | ~2017-06-27 | WRIGHTHP ---
[place], [place] PATIENT HISTORY AND PHYSICAL EXAM NAME: KEITH SANTOS [facility] #: [id number] UNIT #: [id number] ROOM: [facility] DOCTOR: ERICK YANES MD BIRTHDATE: [birth year] DOS: 06/27/2017 HISTORY OF PRESENT ILLNESS: The patient is a 77-year-old gentleman who was recently discharged from [facility] after treatment for CHF and acute exacerbation of COPD and respiratory failure, benign essential hypertension, COPD and chronic hypoxemic respiratory failure, vitamin D deficiency, late onset of Alzheimer's type dementia. The patient was recently discharged from [facility] after treatment for CHF and acute respiratory distress. At home, he developed some increasing shortness of breath and came back to the Emergency Department. The patient was seen by Dr. Brown and recommended for admission for exacerbation of COPD. The patient was found to have a spiculated nodule at the left apex, which was being followed at [place] in the past, but no other acute process was seen on the CT scan of the chest. No chest pain, no dizziness or fainting episodes. No other GI or urinary symptoms. REVIEW OF SYSTEMS: LUNGS: Increasing shortness of breath. GASTROINTESTINAL: No nausea, vomiting, diarrhea or constipation. CARDIOVASCULAR: No chest pains or palpitations. SOCIAL HISTORY: Denies smoking cigarettes, alcohol and drug abuse. FAMILY HISTORY: Noncontributory. HOME MEDICATIONS: Aricept, rivastigmine, metoprolol, lisinopril, furosemide, citalopram, aspirin, DuoNeb, doxycycline. ALLERGIES: No known drug allergies. PHYSICAL EXAMINATION: GENERAL: Alert but poor historian, in no visible distress. HEENT AND NECK: Extraocular movements are intact. Sclerae are anicteric. Oral mucosa is moist and clean. No obvious facial weakness. Neck is supple without any lymphadenopathy. No thyromegaly. No JVD. No carotid arterial bruits. LUNGS: Decreased breath sounds all over. CARDIOVASCULAR SYSTEM: Heart rate is regular in rate and rhythm. S1 and S2 normally audible. No significant murmur or any other abnormal cardiac sounds. ABDOMEN: Soft, nontender. No obvious organomegaly. Bowel sounds are present. No obvious herniation. EXTREMITIES: Without significant cyanosis or edema. Warm to touch. CENTRAL NERVOUS SYSTEM: Alert and oriented x 3. Cranial nerves II-XII are intact. Speech is normal. The patient is able to move all extremities. Normal muscle strength. Deep tendon reflexes are equal on both sides. Plantars were downgoing. LABORATORY DATA: White cell count of 11,000, otherwise normal CBC and left shift. CT chest results as mentioned above. [place], [place] PATIENT HISTORY AND PHYSICAL EXAM [facility] [id number] UNIT #: [id number] ROOM: [facility] DOCTOR: ERICK YANES MD BIRTHDATE: [birth year] IMPRESSION: 1. The patient with exacerbation of severe underlying chronic obstructive pulmonary disease with acute over chronic respiratory failure, has been treated with corticosteroids, oxygen, and doxycycline. Dr. Dodson, the test data developer, is following him and his breathing is improving. 2. Adult failure to thrive picture. The patient to work with physical therapy. 3. Late onset of Alzheimer's type dementia, being treated with rivastigmine and Aricept.. 4. Benign essential hypertension. The patient on metoprolol and lisinopril. Blood pressures to be monitored and treated. 5. We will take bedsore precautions including every 2-hour turning and will take fall precautions. ERICK YANES MD CM:HISPHYS:PATIENT HISTORY AND PHYSICAL EXAMINATION 28 [phone] ERICK YANES MD 06/28/172056 interface
--- NOTE | ~2017-06-27 | PR ---
[place], [place] PROGRESS NOTE NAME: KEITH SANTOS [facility] #: [id number] UNIT #: [id number] ROOM: 515 DOCTOR: ERICK YANES MD BIRTHDATE: [birth year] DOS: 06/29/2017 SUBJECTIVE: The patient has fresh blood in the sputum. OBJECTIVE: GENERAL APPEARANCE: The patient is alert and oriented x 3, in no visible distress. Generalized weakness. VITAL SIGNS: Blood pressure 120/88, heart rate of 62 beats per minute, breathing 16 times per minute and temperature 98 degrees Fahrenheit. HEENT AND NECK: Exam within normal limits. CARDIOVASCULAR SYSTEM: Heart rate is regular in rate and rhythm. S1 and S2 normally audible. LUNGS: Decreased breath sounds. ABDOMEN: Soft, nontender. No obvious organomegaly. Bowel sounds are present. EXTREMITIES: Without significant cyanosis or edema. IMPRESSION AND PLAN: 1. The patient with hemoptysis and lung mass measuring 1.7 x 1.2 cm being evaluated by Dr. Dodson, the patient is scheduled for bronchoscopy tomorrow. 2. Exacerbation of severe underlying chronic obstructive pulmonary disease with acute over chronic respiratory failure, being treated and followed. We are treating him with corticosteroids, oxygen and bronchodilators. Dr. Dodson, the manager product design is following. 3. Benign essential hypertension. Blood pressures are treated and controlled. 4. Adult failure to thrive. The patient to work with physical therapy and we are taking bedsore precautions. ERICK YANES MD CM:PNTRANS [phone] ERICK YANES MD 06/29/172241 interface
--- NOTE | ~2017-06-27 | PR ---
[place], [place] PROGRESS NOTE NAME: KEITH SANTOS [facility] #: [id number] UNIT #: [id number] ROOM: 515 DOCTOR: CATRACHO WEST MD BIRTHDATE: [birth year] DOS: 07/01/2017 SUBJECTIVE: The patient is feeling much better. He has walked in the hallways and also in the room with oxygen on and he has very little cough, no fever or chills. He has not had any chest pain; swelling of the legs is pretty much the same. He is much more alert and feels stronger and his appetite is fine and has been eating well. PHYSICAL EXAMINATION: GENERAL: The patient is sitting in a chair and is doing a crossword puzzle along with his . His complexion is fine. He is on oxygen. VITAL SIGNS: Pulse is 76 and regular, blood pressure 128/73. NECK: JVP is normal. LUNGS: Breath sounds are severely diminished with adventitious sounds as before. CARDIOVASCULAR: Auscultation is unremarkable. He has 2+ edema in the lower extremities still. IMPRESSION: 1. Exacerbation of chronic obstructive pulmonary disease. Has been treated well and he is back at his baseline according to the . 2. Slightly increased troponin I level was due to chronic obstructive pulmonary disease exacerbation and hypoxia. From cardiac standpoint, he can be discharged home. CATRACHO WEST MD CM:PNTRANS [phone] CATRACHO WEST MD 07/02/17 0156 interface
--- NOTE | ~2017-06-27 | PR ---
[place], [place] PROGRESS NOTE NAME: KEITH SANTOS [facility] #: [id number] UNIT #: [id number] ROOM: 515 DOCTOR: ERICK YANES MD BIRTHDATE: [birth year] DOS: 06/30/2017 SUBJECTIVE: The patient is feeling about the same somewhat short of breath. PHYSICAL EXAMINATION: GENERAL APPEARANCE: Generalized weakness and decreased breath sounds all over. VITAL SIGNS: Blood pressure 136/70, heart rate of 64 beats per minute, breathing 20 times per minute, temperature 98.1 degrees Fahrenheit. HEENT AND NECK: Exam within normal limits. CARDIOVASCULAR SYSTEM: Heart rate is regular in rate and rhythm. S1 and S2 normally audible. LUNGS: Clear to auscultation. ABDOMEN: Soft, nontender. No obvious organomegaly. Bowel sounds are present. EXTREMITIES: Without significant cyanosis or edema. IMPRESSION: 1. The patient with hemoptysis secondary to either pneumonia or the lung mass. The patient is status post bronchoscopy by Dr. Dodson. 2. Acute pneumonia, left apex adjacent to the lung mass, being treated with antibiotics by Dr. Dodson and the patient will be discharged back to home after cleared by him. Patient remains on cefepime. 3. Generalized weakness and adult failure to thrive. The patient working with physical therapy. 4. Benign essential hypertension, treated and controlled with metoprolol. 5. Late onset of Alzheimer's type dementia, being treated with rivastigmine. ERICK YANES MD CM:PNTRANS [phone] ERICK YANES MD 06/30/17 2255 interface
--- NOTE | ~2017-06-27 | PR ---
[place], [place] PROGRESS NOTE NAME: KEITH SANTOS UNIT #: [id number] ROOM: 515 DOCTOR: THERESA BAXTER MD BIRTHDATE: [birth year] DOS: 06/29/2017 SUBJECTIVE: The patient has noticed small amount of hemoptysis again. He is n.p.o. past midnight for bronchoscopy. He denies any symptoms of chest pain. He is n.p.o. at this time. He denies symptoms of chest pain. Shortness of breath for the patient was noted stable. There was wheezing noted at times. Vital signs for the patient showed normal temperature, respiratory rate 20, heart rate 60, and blood pressure 129/76. Intake for the patient recorded as 920, output 841 mL. Pulse oxygen saturation on 3 L nasal cannula 97% saturation. OBJECTIVE: VITAL SIGNS: The vital signs patient which were recorded shows a normal temperature, respiratory rate recorded at 20, heart rate 66, blood pressure 138/74. Pulse oxygen saturation of the patient recorded on 3 L nasal cannula 94% saturation. HEENT: Examination shows no new change. NECK: Supple. CARDIOVASCULAR: S1, S2 audible. LUNGS: The patient was noted without any wheeze or crackles at the present time. Breath sounds are noted mildly decreased bilaterally. ABDOMEN: Soft, nontender. LABORATORY DATA: Today platelet function assay was noted abnormal. PT, PTT was normal. IMPRESSION: The patient with hemoptysis which has been noted at this time, etiology is unclear with acute exacerbation of chronic obstructive pulmonary disease and acute bronchitis, rule out any endobronchial lesion for the cause of hemoptysis. There was no evidence of any lung masses was noted with previous CT scan of the chest. The CT scan of the chest for the patient that was done shows left apical nodule, does not explain the hemoptysis at this time. PLAN OF TREATMENT: Proceed with the bronchoscopy as planned. No changes in the medical management otherwise will be necessary. Other supportive therapy, plan of management as well as any modification in treatment if necessary will be done after the bronchoscopy. [place], [place] PROGRESS NOTE NAME: KEITH SANTOS UNIT #: [id number] ROOM: [facility] DOCTOR: THERESA BAXTER MD BIRTHDATE: [birth year] THERESA PENA MD CM:KARAN [phone] THERESA LORA MD 07/01/17 0149 interface
--- NOTE | ~2017-06-27 | PR ---
[place], [place] PROGRESS NOTE NAME: KEITH SANTOS [facility] #: [id number] UNIT #: [id number] ROOM: 515 DOCTOR: DAVID LOWE MD BIRTHDATE: [birth year] DOS: COVERING FOR: Dr. Martin. SUBJECTIVE: The patient examined. The patient is comfortably sleeping. The patient was seen by Dr. Martin yesterday. The patient with hemoptysis and lung mass measuring 1.7 x 1.[address] Dodson. Hemodynamically appears to be stable. No cardiac issues today OBJECTIVE: VITAL SIGNS: Blood pressure today is 130/70, patient is in sinus rhythm. HEENT: Unremarkable. NECK: Supple, no JVD. LUNGS: Diminished breath sounds. HEART: Sounds are regular. ABDOMEN: Soft, nontender. NEUROLOGIC: Appears to be stable. LABORATORY DATA: Hemoglobin 16.7, hematocrit 50. Sodium 139, potassium 4.4, creatinine is 1.1. Troponin was slightly elevated at 0.038. I do not think there is cardiac etiology. PLAN: Continue the present medications as ordered by Dr. Martin and Dr. Dodson. COPD exacerbation, lung mass, workup is being done. Consideration should be given for an echocardiogram to assess right heart pressures, if it is not done in 6 months, and we will follow up. DAVID LOWE MD CM:PNTRANS [phone] DAVID LOWE MD 06/30/172151 interface
--- NOTE | ~2017-06-27 | EKG ---
[place], [place] ELECTROCARDIOGRAM REPORT NAME: KEITH SANTOS UNIT #: [id number] ROOM: [facility] DOCTOR: JEAN LORA MD,THERESA BIRTHDATE: [birth year] DOS: 06/29/2017 The EKG was done on 06/29/2017 at 2:53 p.m. The patient was noted with normal sinus rhythm at a heart rate of 69 beats per minute. Left bundle-branch block pattern was noted, which is old. THERESA PENA MD CM:EKGRPT:ELECTROCARDIOGRAM REPORT 1223 1316 THERESA LORA MD
--- NOTE | ~2017-06-27 | DS ---
[place], [place] DISCHARGE SUMMARY NAME: KEITH SANTOS UNIT #: [id number] ROOM: [facility] DOCTOR: ERICK YANES MD BIRTHDATE: [birth year] DOS: 07/01/2017 DISCHARGE DIAGNOSES: 1. Hemoptysis, pneumonia versus lung mass. 2. Left upper lung mass which needs further evaluation as an outpatient. The patient already following up with a building construction supervisor; was recommended a PET scan. 3. Benign essential hypertension. 4. Late onset Alzheimer's type dementia. 5. Generalized weakness and adult failure to thrive. 6. Acute obstructive pneumonia surrounding the mass suspected by Dr. Dodson, the building construction supervisor. 7. Echocardiogram showing left ventricular hypertrophy with normal left ventricular ejection fraction during this admission. 8. Exacerbation of chronic obstructive pulmonary disease. 9. Chronic hypoxemic respiratory failure. 10. Vitamin D deficiency. 11. Chronic diastolic type congestive heart failure. HOSPITAL COURSE: The patient was admitted with increased shortness of breath and exacerbation of COPD. The patient was followed by Dr. Dodson, the building construction supervisor and treated with bronchodilators, oxygen and his breathing is improved and Dr. Dodson has cleared him for discharge to home today. The patient with left upper lung nodule, which is being worked up by his building construction supervisor as an outpatient. Dr. Dodson also evaluated and recommended a PET scan as an outpatient for further evaluation. Generalized weakness and adult failure to thrive. The patient worked with Physical Therapy. Benign essential hypertension. Late onset Alzheimer's type dementia. Acute suspected pneumonia surrounding the lung mass by Dr. Dodson. The patient was admitted with increased shortness of breath and acute over chronic respiratory failure. The patient had severe underlying COPD and was treated with corticosteroids, oxygen, antibiotics and his breathing has improved and he has been cleared by Dr. Dodson for discharge to home. Adult failure to thrive. The patient worked with physical therapy, generalized weakness. Benign essential hypertension. Blood pressure was monitored and treated. Lung mass measuring 1.7 x 1.2 cm, evaluated by Dr. Dodson and he was already following up with building construction supervisor as an outpatient. LABORATORY DATA: Sputum culture results negative so far. The patient underwent [place], [place] DISCHARGE SUMMARY NAME: KEITH SANTOS UNIT #: [id number] ROOM: [facility] DOCTOR: JOAQUÍN OTTO,ERICK Bains BIRTHDATE: [address] Dodson and echocardiogram showed LVH with normal left ventricular ejection fraction. Blood cultures were negative. DISCHARGE MANAGEMENT: Aricept 10 mg a day, prednisone 5 mg a day, rivastigmine 13.3 mg daily, metoprolol 25 mg daily, lisinopril 20 mg daily, furosemide 40 mg a day, citalopram 10 mg a day, aspirin 81 mg a day, DuoNeb every 4 hours. Follow up with Dr. Kent on Tuesday. Follow up with his building construction supervisor. ERICK YANES MD CM:DOUG [phone] ERICK YANES MD 07/02/17 0005 interface
--- NOTE | ~2017-06-27 | CON ---
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 He has COPD and uses 2 liters of oxygen per minute at home. He has never had a heart attack or heart failure, rhythm problems or stroke and no cancer. The history was obtained from the patient, but mostly from the . He apparently had become increasingly short of breath and was also coughing up some blood with sputum. It was not ____ hemoptysis, but just blood-tinged sputum. He did not have any fever, did not have any chills or shivering, clearly was more short of breath. He does not have any pain and tells me that he did not have any chest pain at home either, very mild swelling in the legs. He also has diarrheal stools or rather loose. HOME MEDICATIONS: Include DuoNeb for oxygen, alprazolam, aspirin, cefuroxime, cholecalciferol, citalopram, Aricept, furosemide, lisinopril, metoprolol tartrate, Singulair, prednisone, vitamin E and multivitamins and Exelon. PHYSICAL EXAMINATION: GENERAL: The patient who is on BiPAP now. He is alert and giving reasonably history. He is not febrile. He is mildly tachypneic. VITAL SIGNS: Pulse is regular at 64 beats per minute, blood pressure 134/86. NECK: JVP is normal, no bruit in the neck. HEART: There is no cardiomegaly. No murmurs are present. EXTREMITIES: He has trace edema in the lower extremities. LABORATORY DATA: An echocardiogram in April had demonstrated an LV ejection fraction of 50-55%, no valvular abnormalities and a Lexiscan Cardiolite study in December of this year demonstrated no ischemia. An ECG done here showed normal sinus rhythm with complete right bundle branch block and left anterior hemiblock, which was present in December of this year. Troponin I is 0.038 and was 0.049 on admission. IMPRESSION: Slight increased troponin I level is most likely due to severe chronic obstructive pulmonary disease with hypoxia. He did not have any chest pain. ECG is unchanged from December of this year when he had a stress test done. I do not recommend any further cardiac workup in this patient. Your attention to aggressive treatment of COPD is most appropriate. I thank you for this consult. [place], [place] REPORT OF CONSULTATION [id number] UNIT #: [id number] ROOM: [facility] DOCTOR: CATRCAHO WEST MD BIRTHDATE: [birth year] CATRACHO WEST MD CM:CONSTR:REPORT OF CONSULTATION 1243 06/29/17 0014 interface ERICK YANES MD
--- NOTE | ~2017-06-27 | PR ---
[place], [place] PROGRESS NOTE NAME: KEITH SANTOS UNIT #: [id number] ROOM: 515 DOCTOR: THERESA BAXTER MD BIRTHDATE: [birth year] DOS: 07/01/2017 PULMONARY PROGRESS NOTE SUBJECTIVE: He has been noted awake and alert at this time and comfortably resting on the bed. The patient has a bronchoscopy completed yesterday successfully without any difficulty. He has been noted with resolution of hemoptysis. Shortness of breath continued to resolve progressively. OBJECTIVE: VITAL SIGNS: Normal temperature, respiratory rate 20, heart rate 75, blood pressure 128/73. Pulse oxygen saturation of the patient noted on 3 liters nasal canula 94% saturation. HEENT: Moderate obesity. NECK: Supple. CARDIOVASCULAR: S1, S2 audible. LUNGS: The patient was noted with [id number] reduction in breath sounds without any wheezing or crackles. ABDOMEN: Soft, nontender. EXTREMITIES: Shows no edema. LABORATORY DATA: Culture of the bronchial washing preliminary showed normal benito, final results pending. Gram stain many white blood cells, few gram-positive cocci in pairs and clusters. IMPRESSION: 1. Resolving acute exacerbation of chronic obstructive pulmonary disease with acute bronchitis, hemoptysis, most likely superficial bleeding from the mucosa of the left endobronchial tree, which has been resolved completely at this time after the bronchoscopy. 2. ____ pulmonary nodule in the left upper lung, which requires further assessment as an outpatient with a PET scan. PLAN OF TREATMENT: The patient could be discharged home on oral medications, as decided. Outpatient followup will be established. A PET scan will be obtained. Outpatient has discussed with the patient as well for assessment of pulmonary nodule. [place], [place] PROGRESS NOTE NAME: KEITH SANTOS UNIT #: [id number] ROOM: 515 DOCTOR: THERESA BAXTER MD BIRTHDATE: [birth year] THERESA PENA MD CM:PNTRANS [id number] THERESA LORA MD 07/01/17 1608 interface
[~2017-06-27 13:11] MED LIST changes: +CEFUROXIME AXE250 MG PO; +CITALOPRAM10 MG PO; +DUONEB 3 MG/3 ML3 M1 NEB; +EXEL13.31 TD
--- NOTE | 2017-06-27 13:45 | NUR ---
PATIENT PLACED ON BI-PAP 08/31, 100%
[2017-06-27 13:57] LABS: BASO % 0.2 % (0.0-1.0); EOS % 0.1 % (1.0-4.0); HEMATOCRIT 54.8 % (42.0-52.0); HEMOGLOBIN 18.5 g/dl (14.0-18.0); LYMPH # 0.4 10*3/uL (1.3-4.4); LYMPH % 2.4 % (27.0-41.0); MEAN CELL VOLUME 101.1 fl (80.0-94.0); MEAN CORPUSCULAR HGB 34.1 pg (27.0-31.0); MEAN CORPUSCULAR HGB CONC 33.8 g/dl (33.0-37.0); MEAN PLATELET VOLUME 9.3 fl (9.6-12.3); MONO # 1.4 10*3/uL (0.1-1.0); MONO % 7.7 % (3.0-9.0); NEUT # 15.8 10*3/uL (2.3-7.9); NEUT % 88.8 % (47.0-73.0); PLATELET COUNT AUTOMATED 174 10*3/uL (130-400); RED BLOOD COUNT 5.42 10*6/uL (4.50-5.90); RED CELL DISTRI WIDTH 13.4 % (0-14.5); WHITE BLOOD COUNT 17.8 10*3/uL (4.8-10.8)
--- NOTE | 2017-06-27 14:00 | NUR ---
PT TOLERATING BIPAP MACHINE. PT APPEARS TO HAVE A DECREASE IN DISTRESS AND DECREASED WORK OF BREATHING. WILL CONTINUE TO MONITOR.
[2017-06-27 14:06] LABS: ACT PARTIAL THROMBO TIME 24.7 SECONDS (20.8-31.5)
[2017-06-27 14:13] LABS: ALBUMIN 3.2 gm/dl (3.1-4.5); ALKALINE PHOSPHATASE 64 U/L (45-117); BUN 37 mg/dl (7-24); CHLORIDE 94 mmol/L (98-107); CREATININE 1.18 mg/dL (0.70-1.30); LIPASE 150 U/L (73-393); MAGNESIUM 2.4 mg/dL (1.5-2.1); POTASSIUM 4.2 mmol/L (3.5-5.1); SGOT/AST 23 IU/L (3-35); SGPT/ALT 26 U/L (12-78); SODIUM 137 mmol/L (136-145); TOTAL PROTEIN 6.8 gm/dL (6.4-8.2)
[2017-06-27 14:15] LABS: TROPONIN I 0.049 ng/ml (<0.045)
--- NOTE | 2017-06-27 14:17 | NUR ---
LAB CALLED CRITICAL TROPONIN OF 0.049. DR. PATEL AWARE
--- NOTE | 2017-06-27 15:44 | NUR ---
MED REC COMPLETE VIA [facility] PHARMACIST.
--- NOTE | 2017-06-27 16:15 | NUR ---
PT TRANSFERRED ON NONBREATHER AT 10L. PT TOLERATED TRANSFER WELL.
--- NOTE | 2017-06-27 16:15 | NUR ---
A 77, admitted to , under the services of Dr. JOAQUÍN OTTO,ERICK Bains with a diagnosis of RESP FAILURE AND PNEUMONITIS. Chief complaint is SHORTNESS OF BREATH. Patient arrived via CART WITH RN from ER. Monitor applied. Initial assessment completed. Vital signs taken and recorded. DR. JOAQUÍN OTTO,ERICK Bains notified of admission to the unit. Orders received. See assessment for past medical history, medications and allergies. Patient and/or family oriented to unit. [facility] visitation policy reviewed. Clothing/patient valuable form completed. GUILLAUME ESPARZA
[2017-06-27] MEDS ORDERED: SINGULAIR10 M1 PO (16:24)
[2017-06-27] MEDS ORDERED: XANAX0.5 MG PO (16:27)
[2017-06-27] MEDS ORDERED: ARICEPT5 M1 PO (16:30)
[2017-06-27 17:02] LABS: ABG BASE EXCESS 10.1 mmol/L (-2.0-2.0); ABG HCO3 37.6 mmol/l (22-26); ABG O2 SATURATION 93.4 % (95-97); ARTERIAL BLOOD GAS PCO2 58.7 mmHg (35-45); ARTERIAL BLOOD GAS PH 7.419 (7.35-7.45)
--- NOTE | 2017-06-27 17:10 | NUR ---
NOTIFIED DR PENA OF ABG RESULTS AND NO NEW ORDERS.
--- NOTE | 2017-06-27 20:01 | NUR ---
ATTEMPTED TO CALL 'S CELL PHONE AT THIS TIME. NO ANSWER. WILL TRY AGAIN.
--- NOTE | 2017-06-27 20:34 | NUR ---
ATTEMPTED TO CALL 'S CELL PHONE AGAIN. NO ANSWER. WILL TRY AGAIN.
--- NOTE | 2017-06-27 20:43 | NUR ---
SPOKE TO AT THIS TIME REGARDING PATIENT'S ELEVATED TROPONIN LEVEL OF 0.049. MADE AWARE OF PATIENT'S DNR-CC CODE STATUS AND ALSO THAT NO OTHER TROPONINS HAVE BEEN ORDERED. INSTRUCTED TO CONSULT AND TO ORDER TROPONINS Q8H X2 MORE.
--- NOTE | 2017-06-27 20:51 | NUR ---
'S ANSWERING SERVICE CALLED AT THIS TIME.
--- NOTE | 2017-06-27 20:57 | NUR ---
SPOKE TO AT THIS TIME REGARDING CONSULT. DISCUSSED PERTINENT PATIENT DEMOGRAPHICS INCLUDING PATIENT'S TROPONIN LEVEL, ORDERED TROPONINS TO BE DRAWN, DNR-CC CODE STATUS, AND PATIENT'S ADMITTING DX. STATES SOMEONE WILL BE IN TO SEE HIM TOMORROW. ALSO INSTRUCTS NOT TO CALL WITH ELEVATED TROPONINS UNLESS GREATER THAN 1.0.
[2017-06-28] VITALS: BP 138/78
--- NOTE | 2017-06-28 03:29 | NUR ---
PATIENT ASLEEP IN BED, RESPIRATIONS EASY. NO S/S OF DISTRESS NOTED. ON BIPAP. CALL LIGHT LEFT IN REACH.
[2017-06-28 05:53] LABS: HEMATOCRIT 50.2 % (42.0-52.0); HEMOGLOBIN 16.7 g/dl (14.0-18.0); MEAN CELL VOLUME 102.2 fl (80.0-94.0); MEAN CORPUSCULAR HGB CONC 33.3 g/dl (33.0-37.0); MEAN PLATELET VOLUME 9.2 fl (9.6-12.3); PLATELET COUNT AUTOMATED 129 10*3/uL (130-400); RED BLOOD COUNT 4.91 10*6/uL (4.50-5.90); RED CELL DISTRI WIDTH 13.2 % (0-14.5)
[2017-06-28 06:05] LABS: BUN 36 mg/dl (7-24); CHLORIDE 95 mmol/L (98-107); CREATININE 1.11 mg/dL (0.70-1.30); POTASSIUM 4.4 mmol/L (3.5-5.1); SODIUM 139 mmol/L (136-145); TROPONIN I 0.022 ng/ml (<0.045)
[2017-06-28 07:17] LABS: TOTAL CELLS COUNTED 100 #CELLS
[2017-06-28 07:18] LABS: PLATELET SUFFICIENCY LOW (NORMAL)
--- NOTE | 2017-06-28 07:41 | NUR ---
PT RESTING IN BED, BIPAP ON. NO DISTRESS NOTED. NO VOICED C/O, WILL MONITOR
[2017-06-28 08:00] VITALS: BP 134/86
--- NOTE | 2017-06-28 08:30 | NUR ---
Color Checker Roving Or Yarn in to talk to patient. Patient states lives at HOME with HIS AND DAUGHTER. There are 1 steps in the home. Physician: DR SMALLS Pharmacy: [facility] Home health services: NONE Patient's level of ADLs: MODERATE ASSIST Patient has working utilities: YES DME: NEB/O2 FROM [facility] Follow-up physician's appointment after d/c: PREFERS TO MAKE HIS OWN APPT Does patient want to access PORTAL?: Discharge plan HOME IF POSSIBLE. CÉSAR KENT
--- NOTE | 2017-06-28 08:53 | NUR ---
PHYSICAL THERAPY PAtient on BiPap at this time. Thank you for this referral. Aster Staley,PT
--- NOTE | 2017-06-28 10:51 | NUR ---
SPOKE WITH DR PLEITEZ REGARDING PT . DR PLEITEZ STATES DR WEST SAW PT FEW MONTHS AGO. DR YANES CALLED AND NOTIFIED. DR WEST NOTIFIED OF NEW CONSULT
--- NOTE | 2017-06-28 12:13 | NUR ---
the suicide score was calculated incorrectly and did not score an 11, not intervention is required.
[2017-06-28 16:00] VITALS: BP 129/90
--- NOTE | 2017-06-28 19:00 | NUR ---
PATIENT AWAKE IN BED, ALERT AND ORIENTED X3. PATIENT STATES HE "FEELS MUCH BETTER TODAY." NOTABLY MORE PINK IN COLOR. RESPIRATIONS EASY, NO S/S OF DISTRESS NOTED AT THIS TIME, ON 6L NC. WILL CONTINUE TO MONITOR. CALL LIGHT IN REACH.
[2017-06-28 20:06] VITALS: BP 130/75
--- NOTE | 2017-06-28 23:03 | NUR ---
Pt placed on BiPap. Pt resting comfortably.
--- NOTE | 2017-06-28 23:35 | NUR ---
PATIENT REQUESTING BIPAP BE TAKEN OFF. PATIENT PLACED ON O2 VIA NC AT 4L/M. POX 95%. WILL MONITOR.
[2017-06-29] VITALS: BP 154/80
[2017-06-29 08:00] VITALS: BP 120/88
[2017-06-29 10:23] LABS: ACT PARTIAL THROMBO TIME 24.7 SECONDS (20.8-31.5)
[2017-06-29 12:00] VITALS: BP 137/75
--- NOTE | 2017-06-29 15:56 | NUR ---
PHYSICAL THERAPY Physical Therapy Evaluation completed this date. See eval document for complete details. Will begin PT intervention to address the impairments of muscle wewakness, decreased functional mobility I, and difficulty ambulating. Recommend SNF on d/c, but pnt declines at this time. Home with full home health services as an alternative[place] [address] based on chart review and PT eval. Lorenza Sheppard, PT
[2017-06-29 16:00] VITALS: BP 124/62
[2017-06-29 20:29] VITALS: BP 134/75
--- NOTE | 2017-06-29 20:30 | NUR ---
AWAKE & ALERT SITTING ON SIDE OF BED. OXYGEN NOT ON AT THIS TIME; ENCOURAGED PATIENT TO PUT OXYGEN BACK ON; PT. COMPLIANT. HEP LOCK INTACT TO LEFT ARM; SITE ASYMPTOMATIC. LUNGS DIMINISHED BILATERALLY WITH NO COUGH NOTED. PT. STATES THAT HE HAD A LOOSE BOWEL MOVEMENT TODAY & IS VOIDING WITHOUT DIFFICULTY. PT. VOICES NO C/O AT THIS TIME. CALL LIGHT WITHIN REACH.
--- NOTE | 2017-06-29 23:55 | NUR ---
REINFORCED NPO STATUS; PT. VERBALIZED UNDERSTANDING.
[2017-06-30] VITALS (8 sets, daily range): BP systolic 129–151; BP diastolic 70–89
--- NOTE | 2017-06-30 | NUR ---
PT. PLACED ON BIPAP BY RESPIRATORY THERAPIST.
--- NOTE | 2017-06-30 06:00 | NUR ---
RESTING IN BED WITH HOB SLIGHT ELEVATED. 02 INTACT. PT. VOCIES NO C/O AT THIS TIME. NPO STATUS BEING MAINTAINED.
--- NOTE | 2017-06-30 08:08 | NUR ---
Pt taken off floor to OR for bronchoscopy.
--- NOTE | 2017-06-30 10:45 | NUR ---
PHYSICAL THERAPY Patient presented to therapy with report of just having a bronchyscopy. Patient says he is feeling better. Patient has no other complaints. Patient performed transfers supine to sitting at EOB and sit to stand transfer with SBA X . PATIENT IS ON 4 LITERS OF spO2. Patient ambulated 50' x 1 with W/W and Close Supervision with 4 liters of spO2. Patient transferred to supine in bed with SBA X 1. Patient required verbal cues to scoot up in bed properly. Patient was 1:1 with this KOSHER SEALER for 15 minutes total. Justyn Zamudio KOSHER SEALER
--- NOTE | 2017-06-30 20:00 | NUR ---
SITTING UP AT BEDSIDE DOING A CROSSWORD PUZZLE. ALERT & ORIENTED. SKIN WARM & DRY. 02 INTACT AT 3 LPM; O2 SATS 90'S; PUT 02 UP TO 3 1/2 LITERS; PT'S PULSE OX 93%. LUNGS DIMINISHED BILATERALLY WITH NO COUGH NOTED AT THIS TIME. PT. VOICES NO C/O AT THIS TIME. NO DISTRESS NOTED. CALL LIGHT WITHIN REACH.
[2017-07-01] VITALS: BP 134/72
[2017-07-01 08:00] VITALS: BP 128/73
--- NOTE | 2017-07-01 08:48 | NUR ---
PHYSICAL THERAPY Mr Chapa seen this AM 1:1 and did well with his therapy. All transfers were CGA X 1, no LOB. Gait with wheeled walker total 50' X 1, and on 4 L o2, no NATALEE and did dnot get SOB with this. Pt up in his bedside chair, present and said that Amor is going home with D/C from the hospital, Pt's breakfast in at this time. SKYLER DURAN TOP CARRIER.
--- NOTE | 2017-07-01 11:25 | NUR ---
Shift chart check completed.
[2017-07-01 15:08] LABS: ACID FAST SMEAR Negative (.); ACID FAST SPEC PROCESSING Concentration (.)
[2017-07-01 16:00] VITALS: BP 143/77
--- NOTE | 2017-07-01 19:29 | NUR ---
Discharge instructions reviewed with patient/family. Patient receptive and verbalizes understanding. Follow-up care understood/arranged. Written instructions given to patient/family. iv removed and dressing applied. 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 BRENDEN BREWER
--- NOTE | 2017-07-04 07:54 | NUR ---
PHYSICAL THERAPY CO-SIGN I approve of the Phyical Therapy notes written above. DELROY DILLON PT
== END 2017-07-01 19:29 | disposition home or self-care (01) | DRG 166 ==
LOC: ED 13:11 → EDHOLD 14:51 → 5E 14:51
PROVIDERS: Emergency Medicine; Internal Medicine Critical Care Medicine; ADMIT Internal Medicine
DX: J96.21 Acute and chronic respiratory failure with hypoxia (principal); J18.9 Pneumonia, unspecified organism; T17.590A Other foreign object in bronchus causing asphyxiation, initial encounter; I11.0 Hypertensive heart disease with heart failure; I50.32 Chronic diastolic (congestive) heart failure; R04.2 Hemoptysis; J44.0 Chronic obstructive pulmonary disease with (acute) lower respiratory infection; J44.1 Chronic obstructive pulmonary disease with (acute) exacerbation; G30.1 Alzheimer's disease with late onset; F02.80 Dementia in other diseases classified elsewhere, unspecified severity, without behavioral disturbance, psychotic disturbance, mood disturbance, and anxiety; J20.9 Acute bronchitis, unspecified; Z66 Do not resuscitate; Z51.5 Encounter for palliative care; R62.7 Adult failure to thrive; E55.9 Vitamin D deficiency, unspecified; X58.XXXA Exposure to other specified factors, initial encounter; Z79.899 Other long term (current) drug therapy; Y93.89 Activity, other specified; Y92.89 Other specified places as the place of occurrence of the external cause; Y99.8 Other external cause status

== ENCOUNTER → 2017-08-24 | Day surgery (SDC) | payer OTHER ==
[2017-08-24] VITALS (8 sets, daily range): BP systolic 124–155; BP diastolic 69–90
[~2017-08-24] MED LIST changes: +ARICEPT5 M1 PO; +OXYGEN NAS; +SINGULAIR10 M1 PO; +XANAX0.5 MG PO
[2017-08-24 12:20] LABS: ACT PARTIAL THROMBO TIME 25.5 SECONDS (20.8-31.5)
== END | disposition home or self-care (01) ==
LOC: LAB 03:32 → RAD 12:00 → SDC 12:00
PROVIDERS: Internal Medicine Critical Care Medicine
DX: R91.1 Solitary pulmonary nodule (principal); J44.9 Chronic obstructive pulmonary disease, unspecified; I11.0 Hypertensive heart disease with heart failure; I50.9 Heart failure, unspecified; Z87.891 Personal history of nicotine dependence; Z98.890 Other specified postprocedural states; Z82.49 Family history of ischemic heart disease and other diseases of the circulatory system